=== PATIENT | male | born 1985 | race Caucasian/White ===

== ENCOUNTER 2017-02-23 03:19 | Emergency (ER) | payer BC, OTHER ==
[~2017-02-23] VITALS: Ht 180.3 cm; Wt 120.0 kg
[2017-02-23 03:19] VITALS: BP 130/60; PULSE 142; RESP 22; TEMP 102.1; O2SAT 97
[~2017-02-23 03:19] MED LIST: OSEL75 PO; ZOFR4TAB3 SL
[2017-02-23] MEDS ORDERED: VENTAER INH (03:38)
[2017-02-23] MEDS ORDERED: SODIUM CHLOR 0.9% 1000 ML INJ 1,000 ML IV ONE ×3 (03:52→06:00)
[2017-02-23] MEDS ORDERED: SODIUM CHLORIDE 0.9% FLUSH 10 ML FLUSH IVF PRN (04:00)
[2017-02-23] MEDS ORDERED: ACETAMINOPHEN 500 MG CPLT PO ONE (04:00)
[2017-02-23] MEDS ORDERED: ONDANSETRON HCL 4 MG/2 ML VIAL IV PUSH ONE (04:00)
[2017-02-23 04:07] VITALS: RESP 18; O2SAT 95
[2017-02-23 04:12] LABS: AUTOMATED NEUTROPHIL # 7.4 TH/MM3 (1.8-7.7); BASOPHIL % 0.2 % (0.0-2.0); EOSINOPHIL % 0.5 % (0.0-4.0); HEMATOCRIT 44.6 % (39.0-51.0); HEMOGLOBIN 15.2 GM/DL (13.0-17.0); LYMPH % 7.1 % (9.0-44.0); LYMPHOCYTE # 0.6 TH/MM3 (1.0-4.8); MEAN CELL VOLUME 85.7 FL (80.0-100.0); MEAN CORPUSCULAR HEMOGLOBIN 29.2 PG (27.0-34.0); MEAN CORPUSCULAR HGB CONC 34.1 % (32.0-36.0); MEAN PLATELET VOLUME 6.8 FL (7.0-11.0); MONO % 6.7 % (0.0-8.0); MONOCYTE # 0.6 TH/MM3 (0-0.9); NEUT % 85.5 % (16.0-70.0); PLATELET COUNT 278 TH/MM3 (150-450); RED CELL DISTRIBUTION WIDTH 12.4 % (11.6-17.2); WHITE BLOOD COUNT 8.7 TH/MM3 (4.0-11.0)
[2017-02-23 04:14] LABS: BILIRUBIN, URINE NEG (NEG); BLOOD, URINE NEG (NEG); GLUCOSE,URINE NEG (NEG); KETONE, URINE NEG (NEG); MUCUS URINE FEW /lpf (OCC); NITRITE,URINE NEG (NEG); PH, URINE 5.5 (5.0-8.5); SQUAMOUS EPITHELIAL CELL URINE <1 /hpf (0-5); URINE COLOR YELLOW (YELLW/STRAW); URINE LEUKOCYTE ESTERASE NEG (NEG)
[2017-02-23 04:32] LABS: ALBUMIN 3.7 GM/DL (3.4-5.0); AST (GOT) 27 U/L (15-37); BICARBONATE 25.3 MEQ/L (21.0-32.0); BLOOD UREA NITROGEN 17 MG/DL (7-18); CALCIUM 8.2 MG/DL (8.5-10.1); CHLORIDE 102 MEQ/L (98-107); GLOMERULAR FILTRATION RATE 70 ML/MIN (>89); GLUCOSE,RANDOM 120 MG/DL (74-106); LIPASE 467 U/L (73-393); SODIUM (NA) 136 MEQ/L (136-145)
[2017-02-23 04:33] LABS: ALT (GPT) 34 U/L (12-78)
[2017-02-23 04:35] LABS: ALKALINE PHOSPHATASE 68 U/L (45-117); TOTAL BILIRUBIN ADULT 0.4 MG/DL (0.2-1.0); TOTAL PROTEIN 7.5 GM/DL (6.4-8.2)
--- NOTE | 2017-02-23 04:41 | PD ---
HPI Chief Complaint: GI Complaint Time Seen by Provider: 03:52 Travel History International Travel<30 days: No Contact w/Intl Traveler<30days: No Traveled to known affect area: No History of Present Illness HPI 31-year-old male presents to the emergency department by private transportation for complaint of frequent nausea vomiting and multiple episodes of nonbloody non -mucoid diarrhea 2 days. Patient states he just finished a course of oral antibiotic last week that was prescribed for him while he was being treated for exacerbation of asthma. Patient was also on steroid at that time. Patient denies history of abdominal pain GI disorder inflammatory bowel disease Crohn's or ulcerative colitis. Patient states discomfort is primarily left lower quadrant. Patient is also noted fever. Patient denies any respiratory symptoms at this time. Patient denies headache sore throat earache cough congestion shortness of breath chest pain. No dysuria frequency or urgency. No family members or friends with similar symptoms. Patient rates his abdominal pain as mild to moderate. Patient complains of generalized weakness. No near-syncope or syncope. PFSH Past Medical History Narrative Medical asthma, no surgery; no tobacco use; nursing notes reviewed Asthma: Yes Diminished Hearing: No Past Surgical History Surgical History: No Previous Surgery Social History Alcohol Use: No Tobacco Use: No Substance Use: No Allergies-Medications (Allergen,Severity, Reaction): Coded Allergies: No Known Allergies (Unverified Adverse Reaction, Unknown, 02/23/17) Reported Meds & Prescriptions Reported Meds & Active Scripts Active Reported Ventolin Hfa 18 GM Inh (Albuterol Sulfate) 90 Mcg/Act Aer 2 Puff INH Q4-6H PRN Review of Systems Except as stated in HPI: all other systems reviewed are Neg General / Constitutional: Positive: Fever, No: Chills HENT: No: Sore Throat, Congestion Cardiovascular: No: Chest Pain or Discomfort Respiratory: No: Shortness of Breath, Wheezing Gastrointestinal: Positive: Nausea, Vomiting, Diarrhea, Abdominal Pain, No: Hematemesis, Hematochezia, Loss of Appetite Genitourinary: Positive: Decreased Urinary Output, No: Dysuria Musculoskeletal: No: Myalgias, Arthralgias Skin: No Rash Neurologic: No: Weakness Psychiatric: No: Anxiety Hematologic/Lymphatic: No: Lymph Node Enlargement Physical Exam Narrative GENERAL: Well-developed well-nourished male in obvious discomfort with no respiratory distress noted to have fever tachycardia and mild increased respiratory rate with stable blood pressure SKIN: Warm and dry. HEAD: Normocephalic. EYES: No scleral icterus. No injection or drainage. ENT: Mucous membranes moist airway is patent no posterior pharyngeal edema erythema or exudative change. NECK: Supple, trachea midline. No JVD or lymphadenopathy. No meningismus no nuchal rigidity. CARDIOVASCULAR: Increased Regular rate and rhythm without murmurs, gallops, or rubs. RESPIRATORY: Breath sounds equal bilaterally. No accessory muscle use. GASTROINTESTINAL: Abdomen soft, non-tender except for mild left lower quadrant tenderness to direct palpation without guarding or rebound, nondistended. MUSCULOSKELETAL: No cyanosis, or edema. BACK: Nontender without obvious deformity. No CVA tenderness. Data Data Last Documented VS Vital Signs Date Time Temp Pulse Resp B/P (MAP) Pulse Ox O2 Delivery O2 Flow Rate FiO2 02/23/17 06:07 20 02/23/17 05:51 99.1 111 120/53 (75) 95 Room Air Orders Orders Complete Blood Count With Diff (02/23/17 03:52) Comprehensive Metabolic Panel (02/23/17 03:52) Urinalysis - C+S If Indicated (02/23/17 03:52) Lipase (02/23/17 03:52) Ct Abd/Pel W Iv Contrast(Rout) (02/23/17 ) Iv Access Insert/Monitor (02/23/17 03:52) Ecg Monitoring (02/23/17 03:52) Oximetry (02/23/17 03:52) Ondansetron Inj (Zofran Inj) (02/23/17 04:00) Sodium Chlor 0.9% 1000 Ml Inj (Ns 1000 M (02/23/17 03:52) Sodium Chloride 0.9% Flush (Ns Flush) (02/23/17 04:00) Blood Culture (02/23/17 03:52) C Diff Toxin Pcr (02/23/17 03:52) Enteric Path (Stool) (02/23/17 03:52) Sodium Chlor 0.9% 1000 Ml Inj (Ns 1000 M (02/23/17 04:00) Acetaminophen (Tylenol) (02/23/17 04:00) Iohexol 350 Inj (Omnipaque 350 Inj) (02/23/17 05:02) Lactic Acid (02/23/17 05:08) Sodium Chlor 0.9% 1000 Ml Inj (Ns 1000 M (02/23/17 06:00) Labs Laboratory Tests Test 02/23/17 03:51 02/23/17 03:57 02/23/17 05:14 Urine Color YELLOW Urine Turbidity CLEAR Urine pH 5.5 Urine Specific [place] 1.026 Urine Protein TRACE mg/dL Urine Glucose (UA) NEG mg/dL Urine Ketones NEG mg/dL Urine Occult Blood NEG Urine Nitrite NEG Urine Bilirubin NEG Urine Urobilinogen LESS THAN 2.0 MG/DL Urine Leukocyte Esterase NEG Urine RBC 1 /hpf Urine WBC 1 /hpf Urine Squamous Epithelial Cells <1 /hpf Urine Mucus FEW /lpf Microscopic Urinalysis Comment CULT NOT INDICATED White Blood Count 8.7 TH/MM3 Red Blood Count 5.20 MIL/MM3 Hemoglobin 15.2 GM/DL Hematocrit 44.6 % Mean Corpuscular Volume 85.7 FL Mean Corpuscular Hemoglobin 29.2 PG Mean Corpuscular Hemoglobin Concent 34.1 % Red Cell Distribution Width 12.4 % Platelet Count 278 TH/MM3 Mean Platelet Volume 6.8 FL Neutrophils (%) (Auto) 85.5 % Lymphocytes (%) (Auto) 7.1 % Monocytes (%) (Auto) 6.7 % Eosinophils (%) (Auto) 0.5 % Basophils (%) (Auto) 0.2 % Neutrophils # (Auto) 7.4 TH/MM3 Lymphocytes # (Auto) 0.6 TH/MM3 Monocytes # (Auto) 0.6 TH/MM3 Eosinophils # (Auto) 0.0 TH/MM3 Basophils # (Auto) 0.0 TH/MM3 CBC Comment DIFF FINAL Differential Comment Blood Urea Nitrogen 17 MG/DL Creatinine 1.20 MG/DL Random Glucose 120 MG/DL Total Protein 7.5 GM/DL Albumin 3.7 GM/DL Calcium Level 8.2 MG/DL Alkaline Phosphatase 68 U/L Aspartate Amino Transf (AST/SGOT) 27 U/L Alanine Aminotransferase (ALT/SGPT) 34 U/L Total Bilirubin 0.4 MG/DL Sodium Level 136 MEQ/L Potassium Level 3.4 MEQ/L Chloride Level 102 MEQ/L Carbon Dioxide Level 25.3 MEQ/L Anion Gap 9 MEQ/L Estimat Glomerular Filtration Rate 70 ML/MIN Lipase 467 U/L Lactic Acid Level 1.6 mmol/L MDM Medical Decision Making Medical Screen Exam Complete: Yes Emergency Medical Condition: Yes Medical Record Reviewed: Yes Interpretation(s) CBC & BMP Diagram 02/23/17 03:57 Total Protein 7.5, Albumin 3.7, Calcium Level 8.2 L, Alkaline Phosphatase 68, Aspartate Amino Transf (AST/SGOT) 27, Alanine Aminotransferase (ALT/SGPT) 34, Total Bilirubin 0.4 lipase: mild elevation 497 lactic acid: 1.6, not elevated Last Impressions Abdomen/Pelvis CT 02/23/17 0000 Signed Impressions: Service Date/Time: Thursday, February 23, 2017 05:00 - CONCLUSION: 1. Borderline splenomegaly. 2. No other acute findings in the abdomen and pelvis. Wes Farias MD UA: grossly wnl Differential Diagnosis Gastroenteritis, colitis, pseudomembranous/C. difficile colitis, electrolyte disturbance, dehydration, UTI, pancreatitis, gastritis, peptic ulcer disease, cholecystitis, sepsis Narrative Course Patient placed on electronic device monitor IV access obtained specimens collected and sent for resulting including blood cultures and lactic acid Patient administered Zofran 4 mg IV and 2 L normal saline as well as 1 g of acetaminophen @ 5:50 AM patient reports that he feels better will give trial of oral hydration in the ED; no vomiting or diarrhea while in the ED. CBC with automated differential remarkable for left shift 85% neutrophils otherwise eyes normal range; chemistries remarkable for mild decreased potassium and mild elevation of lipase at 467 urinalysis specific gravity is within normal range otherwise unremarkable; patient's bicarbonate and anion gap are normal range. Patient's lactic acid is not elevated. Patient is no longer febrile however heart rate does remain mildly elevated at 111. Patient be given additional liter of normal saline. Patient meets sirs and possibly sepsis criteria based upon VS and possible gi source but has not been taking any antipyretics and elevated temperature may account for HR and RR alone or values also reflect hydration status after 2 days of N/V/D. @6:15 AM patient taking oral hydration well asymptomatic abdomen is soft nontender patient is no longer febrile; feels well and is stable for outpatient management. Sepsis Criteria SIRS Criteria (2 or more): Temp > 100.9 or < 96.8, Heart rate over 90, RR > 20 or PaCO2 < 32 Diagnosis Primary Impression: Gastroenteritis Additional Impression: Dehydration Referrals: Primary Care Physician 2 days Patient Instructions: General Instructions Additional Instructions: Increase fluid hydration Follow clear liquid diet for next 12-24 hours advance as tolerated to bland/ Lance diet then regular diet avoiding fried and fatty foods Monitor temperature every 4 hours with thermometer take as needed acetaminophen/ Tylenol every 4 hours for fever 100.4F or greater May take as tolerated as needed ibuprofen/Advil/Motrin 600 mg a be taken as often as every 6 hours or high-dose ibuprofen 800 mg may be taken only as often as every 8 hours as needed for fever 100.4F or greater or for pain associated with inflammation Follow-up with your primary care provider call office on Saturday to schedule follow-up appointment Return to the emergency for for any concerns or change in condition or recurrent fever Med/Other Pt SpecificInfo: Prescription(s) given Scripts Ondansetron Odt (Zofran Odt) 4 Mg Tab 4 MG SL Q6HR Y for Nausea/Vomiting, #15 TAB 0 Refills Prov: Aretha Storey MD 02/23/17 Disposition: 01 DISCHARGE HOME Condition: Stable Aretha Storey MD Feb 23, 2017 04:41
[2017-02-23] MEDS ORDERED: IOHEXOL 350 MG/ML 10 ML VIAL (for RAD DIAG) IVCONTRAST ONE (05:02)
--- NOTE | 2017-02-23 05:27 | RADRPT ---
EXAM DATE/TIME: 02/23/2017 05:00 [facility] COMPARISON: No previous studies available for comparison. INDICATIONS : Left lower quadrant pain with nausea and vomiting. IV CONTRAST: 100 cc Omnipaque 350 (iohexol) IV ORAL CONTRAST: No oral contrast ingested. RADIATION DOSE: 19.95 CTDIvol (mGy) MEDICAL HISTORY : None SURGICAL HISTORY : None. ENCOUNTER: Initial ACUITY: 2 days PAIN SCALE: 8/10 LOCATION: abdomen TECHNIQUE: Volumetric scanning of the abdomen and pelvis was performed. Using automated exposure control and ad justment of the mA and/or kV according to patient size, radiation dose was kept as low as reasonably achievable to obtain optimal diagnostic quality images. DICOM format image data is available electro nically for review and comparison. FINDINGS: LOWER LUNGS: Mild bilateral dependent lower lobe atelectasis. LIVER: Homogeneous density without lesion. There is no dilation of the biliary tree. No calcified gallston es. SPLEEN: Mild enlargement of the spleen measuring 13.1 cm in craniocaudal dimension. PANCREAS: Within normal limits. KIDNEYS: Normal in size and shape. There is no mass, stone or hydronephrosis. ADRENAL GLANDS: Within normal limits. VASCULAR: There is no aortic aneurysm. BOWEL/MESENTERY: Appendix within normal limits. No evidence of acute diverticulitis. No evidence of bowel dilatation. No free air or free fluid. ABDOMINAL WALL: Within normal limits. RETROPERITONEUM: There is no lymphadenopathy. BLADDER: No wall thickening or mass. REPRODUCTIVE: Within normal limits. INGUINAL: There is no lymphadenopathy or hernia. MUSCULOSKELETAL: Within normal limits for patient age. CONCLUSION: 1. Borderline splenomegaly. 2. No other acute findings in the abdomen and pelvis. Wes Farias MD on February 23, 2017 at 5:20 Board Certified Radiologist. This report was verified electronically.
[2017-02-23 05:51] VITALS: BP 120/53; PULSE 111; RESP 19; TEMP 99.1; O2SAT 95
[2017-02-23 06:07] VITALS: RESP 20
[2017-02-23] MEDS ORDERED: ZOFR4TAB3 SL (06:16)
== END 2017-02-23 06:37 | disposition home or self-care (01) ==
LOC: NEPC 03:19
DX: K52.9 Noninfective gastroenteritis and colitis, unspecified (principal); E86.0 Dehydration
CPT/HCPCS: 74177; 80053; 81001; 83605; 83690; 85025; 87040; 96374; 99285; J2405; J7030; Q9967